=== PATIENT | female | born 1965 | race Caucasian/White ===

== ENCOUNTER 2017-02-12 14:09 | Inpatient (IN) | payer OTHER ==
[~2017-02-12] VITALS: Ht 160 cm; Wt 123.1 kg
[~2017-02-12 14:09] MED LIST: DESYREL100 MG PO; FLEXERIL5 MG PO; GABAPENTIN100 MG PO; LAMICTAL150 M1 PO; LODINE400 MG PO; NOHOMEMEDS; PAIN MED; SEROQUEL400 MG PO; TOPAMAX200 MG PO
[2017-02-12 15:37] LABS: ADD MIUA? YES; BILIRUBIN NEGATIVE; BLOOD NEGATIVE; COLOR YELLOW ((YELLOW)); GLUCOSE (STRIP) NEGATIVE; KETONES NEGATIVE; LEUKOCYTES NEGATIVE; NITRITE NEGATIVE; PROTEIN (STRIP) 30; SPECIFIC GRAVITY 1.019 (1.000-1.030); UROBILINOGEN 0.2 MG/DL (0.2-1.0)
[2017-02-12 15:45] LABS: AMPHETAMINE NEGATIVE (500 ng/mL); BARBITURATES NEGATIVE (200 ng/mL); BENZODIAZEPINES NEGATIVE (150 ng/mL); COCAINE NEGATIVE (150 ng/mL); INTERNAL CONTROLS VALID? YES; METHADONE NEGATIVE (200 ng/mL); METHAMPHETAMINE NEGATIVE (500 ng/mL); OPIATES (MORPHINE) NEGATIVE (100 ng/mL); OXYCODONE NEGATIVE (100 ng/mL); PHENCYCLIDINE NEGATIVE (25 ng/mL); PROPOXYPHENE NEGATIVE (300 ng/mL); THC CANNABINOIDS NEGATIVE (50 ng/mL); TRICYCLIC ANTIDEPRESSANTS PRESUMPTIVE POSITIVE (300 ng/mL)
[2017-02-12 15:46] LABS: HEMATOCRIT 41.9 % (36.0-46.0); MCH 31.3 PG (29.0-34.0); MCHC 32.9 G/DL (30.0-36.0); MEAN PLAT.VOLUME 9.7 uM^3 (9.5-12.4); PLATELET COUNT 200 K/uL (156-360); RBC DIS.WIDTH-CV 12.2 % (11.8-14.6); RBC DIS.WIDTH-SD 42.9 % (39-53); RED BLOOD COUNT 4.41 M/uL (3.80-5.20); WHITE BLOOD COUNT 4.7 K/uL (4.1-10.2)
[2017-02-12 15:55] LABS: AMORPHOUS URATES CRYSTALS 4+; BACTERIA 2+ /HPF; CRYSTALS PRESENT; EPITHELIAL CELLS NONE SEEN /HPF; MUCUS NONE SEEN /LPF; RED BLOOD CELLS 0-5 /HPF (0-5); UCUL ADDED? YES; WHITE BLOOD CELLS 0-5 /HPF (0-5)
[2017-02-12 15:57] LABS: CHLORIDE 115 mEq/L (99-109); POTASSIUM 4.2 mEq/L (3.7-5.4); SODIUM 144 mEq/L (136-147)
[2017-02-12 15:59] LABS: GLUCOSE 91 mg/dL (70-99)
[2017-02-12 16:01] LABS: ANION GAP 5 MEQ/L (2-14)
[2017-02-12 16:03] LABS: GFR ESTIMATE (CALCULATED) > 59 mL/min/
[2017-02-12 16:04] LABS: UREA NITROGEN (BUN) 17 mg/dL (9-23)
[2017-02-12] MEDS ORDERED: SEROQUEL50 MG PO (17:17)
[2017-02-12] MEDS ORDERED: ZOLPIDEM TARTRAT5 MG PO (17:18)
[2017-02-12 18:14] VITALS: BP 130/82
[2017-02-12] MEDS ORDERED: TYLENOL REGULA325 MG PO (18:14)
[2017-02-13 07:52] VITALS: BP 115/70
[2017-02-13 16:23] VITALS: BP 136/85
[2017-02-13 17:53] LABS: ADD MIUA? YES; BILIRUBIN NEGATIVE; BLOOD NEGATIVE; COLOR STRAW ((YELLOW)); GLUCOSE (STRIP) NEGATIVE; KETONES NEGATIVE; LEUKOCYTES TRACE; NITRITE NEGATIVE; PROTEIN (STRIP) NEGATIVE; SPECIFIC GRAVITY 1.005 (1.000-1.030); UROBILINOGEN 0.2 MG/DL (0.2-1.0)
[2017-02-13 18:33] LABS: BACTERIA NONE SEEN /HPF; CASTS NONE SEEN /LPF; CRYSTALS NONE SEEN; EPITHELIAL CELLS RARE /HPF; MUCUS NONE SEEN /LPF; RED BLOOD CELLS NONE SEEN /HPF (0-5); UCUL ADDED? NO; WHITE BLOOD CELLS RARE /HPF (0-5)
[2017-02-14 09:05] VITALS: BP 102/56
[2017-02-14 16:52] VITALS: BP 115/67
[2017-02-15 07:53] VITALS: BP 92/52
[2017-02-15 11:34] VITALS: BP 114/66
[2017-02-15 15:37] VITALS: BP 138/68
[2017-02-16 07:36] VITALS: BP 102/56
[2017-02-16 15:37] VITALS: BP 126/70
[2017-02-17 07:46] VITALS: BP 104/62
[2017-02-17 15:41] VITALS: BP 110/57
[2017-02-18 07:42] VITALS: BP 113/65
[2017-02-18 15:28] VITALS: BP 110/62
[2017-02-19 07:47] VITALS: BP 111/53
[2017-02-19] MEDS ORDERED: LAMOTRIGINE200 MG PO (09:07)
[2017-02-19] MEDS ORDERED: LAMOTRIGINE150 MG PO ×2 (09:07→11:26)
[2017-02-19] MEDS ORDERED: TOPAMAX200 MG PO (11:28)
== END 2017-02-19 11:36 | disposition home or self-care (01) | DRG 885 ==
LOC: EME 14:09 → EDOF 16:52 → 1WEST 16:52 → ENRESERV 17:32 → 1WEST 18:07
PROVIDERS: Emergency Medicine; Psychiatry & Neurology Psychiatry
DX: F33.1 Major depressive disorder, recurrent, moderate (principal); F60.9 Personality disorder, unspecified; R45.851 Suicidal ideations; E78.00 Pure hypercholesterolemia, unspecified; E78.5 Hyperlipidemia, unspecified; M19.90 Unspecified osteoarthritis, unspecified site; Z62.810 Personal history of physical and sexual abuse in childhood; E66.01 Morbid (severe) obesity due to excess calories; Z91.5 Personal history of self-harm; Z68.42 Body mass index [BMI] 45.0-49.9, adult
CPT/HCPCS: 80048; 81003; 85027; 87086; 90839; 94660; 97150 GO; 97165 GO; 99281; 99284